=== PATIENT | female | born 1930 | race Asian ===

== ENCOUNTER → 2016-10-23 | Outpatient (CLI) | payer OTHER, MEDICAID ==
[~2016-10-23] MED LIST: ALEN70TA48 PO; ALLO100T PO; ASPI81TA2 PO; CALC-719 PO; HYDR25TA PO; LISI10TA7 PO; METO50 PO; MONT10TA21 PO; SIMV40 PO
== END | disposition home or self-care (01) ==
LOC: RADPV 08:26
PROVIDERS: ATTEND Family Medicine
DX: M81.0 Age-related osteoporosis without current pathological fracture (principal); M85.88 Other specified disorders of bone density and structure, other site
CPT/HCPCS: 77080

== ENCOUNTER → 2017-01-15 | Outpatient (CLI) | payer OTHER, MEDICAID ==
[~2017-01-15] MED LIST changes: +SIMV-261 PO; -SIMV40 PO
== END | disposition home or self-care (01) ==
LOC: RADPV 09:06
PROVIDERS: ATTEND Family Medicine
DX: M19.011 Primary osteoarthritis, right shoulder (principal); M25.811 Other specified joint disorders, right shoulder; M51.36 Other intervertebral disc degeneration, lumbar region; M47.816 Spondylosis without myelopathy or radiculopathy, lumbar region; M43.17 Spondylolisthesis, lumbosacral region; M85.88 Other specified disorders of bone density and structure, other site; I70.0 Atherosclerosis of aorta; I70.8 Atherosclerosis of other arteries
CPT/HCPCS: 72100

== ENCOUNTER 2019-01-04 07:26 | Emergency (ER) | payer MEDICARE, MEDICAID ==
[~2019-01-04] VITALS: Ht 152.4 cm; Wt 61.4 kg
[~2019-01-04 07:26] MED LIST changes: +ALEN70TA10 PO; -ALEN70TA48 PO; +ASPI-1198 PO; -ASPI81TA2 PO
[2019-01-04] MEDS ORDERED: FURO40 PO (07:39)
[2019-01-04] MEDS ORDERED: LISI-662 PO (07:39)
[2019-01-04 07:50] VITALS: BP 138/75
== END 2019-01-04 08:10 | disposition home or self-care (01) ==
LOC: EMS 07:28
DX: I11.0 Hypertensive heart disease with heart failure (principal); I50.9 Heart failure, unspecified; E11.9 Type 2 diabetes mellitus without complications; E78.00 Pure hypercholesterolemia, unspecified; M19.90 Unspecified osteoarthritis, unspecified site; Z98.890 Other specified postprocedural states; Z79.899 Other long term (current) drug therapy; Z79.82 Long term (current) use of aspirin

== ENCOUNTER 2019-01-19 16:28 | Emergency (ER) | payer MEDICARE, MEDICAID ==
[~2019-01-19] VITALS: Ht 147.3 cm; Wt 65.0 kg
[~2019-01-19 16:28] MED LIST changes: +FURO40 PO; -HYDR25TA PO; +LISI-662 PO; -LISI10TA7 PO
[2019-01-19 16:44] LABS: GLUCOSE,POINT OF CARE 156 MG/DL (70-110)
[2019-01-19] MEDS ORDERED: LIDOCAINE 5% TRANSDERMAL PATCH TD ONE ×2 (17:15→19:00)
[2019-01-19] MEDS ORDERED: ACETAMINOPHEN/CODEINE 300-15 MG TABLET PO ONE (17:45)
[2019-01-19 19:45] VITALS: BP 132/70
== END 2019-01-19 19:46 | disposition home or self-care (01) ==
LOC: EMS 16:29
DX: S32.2XXA Fracture of coccyx, initial encounter for closed fracture (principal); I11.0 Hypertensive heart disease with heart failure; I50.9 Heart failure, unspecified; E11.9 Type 2 diabetes mellitus without complications; K21.9 Gastro-esophageal reflux disease without esophagitis; E78.00 Pure hypercholesterolemia, unspecified; M19.90 Unspecified osteoarthritis, unspecified site; Z79.82 Long term (current) use of aspirin; Z79.899 Other long term (current) drug therapy; W18.30XA Fall on same level, unspecified, initial encounter; Y93.89 Activity, other specified; Y92.89 Other specified places as the place of occurrence of the external cause; Y99.8 Other external cause status
CPT/HCPCS: 72072; 72100; 72220

== ENCOUNTER 2019-02-04 00:57 | Emergency (ER) | payer MEDICARE, MEDICAID ==
[~2019-02-04] VITALS: Ht 154.9 cm; Wt 60.5 kg
[2019-02-04] MEDS ORDERED: KDUR20 PO (01:31)
[2019-02-04] MEDS ORDERED: AMLO5TAB9 PO (01:31)
[2019-02-04] MEDS ORDERED: OXYB5 PO (01:31)
[2019-02-04] MEDS ORDERED: TraMADol HCL 50 MG TABLET PO ONE (05:15)
[2019-02-04] MEDS ORDERED: CloNIDine HCL 0.1 MG TABLET PO ONE (06:00)
[2019-02-04 06:35] VITALS: BP 144/62
== END 2019-02-04 07:10 | disposition home or self-care (01) ==
LOC: EMS 00:57
DX: R51 Headache (principal); F41.9 Anxiety disorder, unspecified; M17.12 Unilateral primary osteoarthritis, left knee; I11.0 Hypertensive heart disease with heart failure; I50.9 Heart failure, unspecified; E78.00 Pure hypercholesterolemia, unspecified; E11.9 Type 2 diabetes mellitus without complications; K21.9 Gastro-esophageal reflux disease without esophagitis; Z79.899 Other long term (current) drug therapy

== ENCOUNTER 2019-03-15 19:02 | Emergency (ER) | payer MEDICARE, MEDICAID ==
[~2019-03-15] VITALS: Ht 152.4 cm; Wt 57.3 kg
[~2019-03-15 19:02] MED LIST changes: +AMLO5TAB9 PO; +KDUR20 PO; +OXYB5 PO
[2019-03-15 19:20] LABS: GLUCOSE,POINT OF CARE 112 MG/DL (70-110)
[2019-03-15] MEDS ORDERED: HYDROCODONE/ACETAMINOPHEN 5-325 MG TABLET PO ONE (20:30)
[2019-03-15 21:40] VITALS: BP 134/72
== END 2019-03-15 21:40 | disposition home or self-care (01) ==
LOC: EMS 19:03
DX: S20.212A Contusion of left front wall of thorax, initial encounter (principal); I11.0 Hypertensive heart disease with heart failure; I50.9 Heart failure, unspecified; E11.9 Type 2 diabetes mellitus without complications; K21.9 Gastro-esophageal reflux disease without esophagitis; E78.00 Pure hypercholesterolemia, unspecified; Z79.82 Long term (current) use of aspirin; Z79.899 Other long term (current) drug therapy; W18.2XXA Fall in (into) shower or empty bathtub, initial encounter; Y93.89 Activity, other specified; Y92.89 Other specified places as the place of occurrence of the external cause; Y99.8 Other external cause status